=== PATIENT | male | born 1955 | race Caucasian/White ===

== ENCOUNTER 2018-11-18 15:55 | Emergency (ER) | payer OTHER, SELFPAY ==
--- NOTE | 2018-11-18 16:27 | NUR.NOTE ---
pt [place] his eat [place] in [place] was convinced that the stick was still inside his ear left . RN looked in the ear and found ear to be free of debree however moderate bleeding in ear
[2018-11-18 16:28] VITALS: BP 134/70; PULSE 65; RESP 17; TEMP 36; O2SAT 100
--- NOTE | 2018-11-18 22:35 | ED.GENADUL_ITS ---
Discharge Plan Disposition Patient Disposition: HOME Condition: Good Discharge Details Chief Complaint: EarProblem Clinical Impression: Perforation of tympanic membrane Primary Care Provider: Melvin Ludwig ED Provider: Tyree Drummond Home Meds and New Rx's Prescriptions: No Action multivitamin [Once Daily] 1 EACH tablet 1 ea PO DAILY RF: 0 aspirin [Aspirin Low-Strength] 81 MG tablet,chewable 81 mg PO 4xWeek RF: 0 fish oil-fat acid comb.[id number] [[place] 3-6-9] 1,200 MG capsule 2 cap PO DAILY RF: 0 calcium carbonate [Calcium 500] 500 MG tablet 1,000 mg PO DAILY RF: 0 cholecalciferol (vitamin D3) [Vitamin D3] 1,000 UNIT capsule 1,000 unit PO DAILY RF: 0 gemfibrozil 600 MG tablet 600 mg PO BID Qty: 180 RF: 4 triamcinolone acetonide 15 GM cream Topical BID Qty: 30 RF: 3 simvastatin 40 MG tablet 0.5 tab PO HS Qty: 45 RF: 4 Discharge Instructions Instructions: Ruptured Eardrum (ED) Additional Instructions: Please take the antibiotic as directed. Please apply 2-3 drops to the left ear daily. Please follow-up with your primary care provider as soon as possible for reassessment. Please put in a referral with the ear nose throat doctor for further assessment. You will be called with an appointment time. If you notice any worsening drainage, fever, worsening pain, hearing changes, please return immediately for reassessment Referrals: Melvin Ludwig MD [Primary Care Provider] - Discharge Data Discharge Date/Time-TO BE ENTERED AT DEPARTURE: 11/18/18 17:25 Medical Decision Making This is a pleasant 63-year-old male who presents with left ear pain after a twig got stuck in it. Physical exam demonstrates a small perforation in the tympanic membrane, no evidence of active bleeding after blood was removed. Hearing is notably decreased in the left ear. With evidence of perforation, I feel that antibiotics are indicated especially since he was perforated with a foreign body. No evidence of retained foreign body I do feel that the patient be safely discharged home with close follow-up with his PCP. We will put in referral for ENT on an outpatient basis. We will start the patient on ofloxacin for treatment of this. We will give the first dose here I have extensively reviewed the treatment plan and discharge instructions with the patient and their family. I have addressed all patient concerns at this time. The patient and family was made aware of what symptoms to monitor for that would warrant a return to the emergency department. Discussed the plan with the patient and family, they demonstrate verbal understanding and agreement with our assessment and plan at this time. HPI General Date/Time Provider Initiated Documentation: 11/18/18 16:56 . HPI Narrative: This is a pleasant 63-year-old male who presents for evaluation of bleeding in his ear. The patient states that [place] a twig got stuck in his left ear, he heard a pop, noticed bleeding. He came in for further evaluation. He denies any other trauma or any other complaints. He does take daily aspirin but no other blood thinners. Hearing is notably decreased in the left ear. He denies any headache or head pain. No numbness tingling weakness. No other complaints or modifying factors at this time. He denies any IV illicit drug use, pertinent family history or recent surgical history. Related Data Home Medications Medication Instructions Recorded Confirmed aspirin [Aspirin Low-Strength] 81 mg PO 4xWeek tab-cap 03/01/13 06/01/14 fish oil-fat acid comb.8-[id number] 2 cap PO DAILY 03/01/13 06/01/14 [[place] 3-6-9 1,200 Mg Softgel] multivitamin [Once Daily] 1 ea PO DAILY 03/01/13 06/01/14 calcium carbonate [Calcium] 1,000 mg PO DAILY 04/08/17 cholecalciferol (vitamin D3) 1,000 unit PO DAILY 04/08/17 [Vitamin D3] gemfibrozil 600 mg PO BID #180 tab-cap 04/10/18 triamcinolone acetonide 0 TOPICAL BID #30 g 04/10/18 simvastatin 0.5 tab PO HS #45 tab-cap 05/13/18 Previous Rx's Medication Instructions Recorded gemfibrozil 600 mg PO BID #180 tab-cap 04/10/18 simvastatin 0.5 tab PO HS #45 tab-cap 05/13/18 Allergies Allergy/AdvReac Type Severity Reaction Status Date / Time iodine AdvReac Intermediate Vomiting Unverified 04/10/18 15:51 shellfish derived AdvReac Intermediate Vomiting Unverified 04/10/18 15:51 General Stated Complaint: EarProblem CHUY: 5 Review of Systems Review of Systems All systems reviewed & are unremarkable except as noted in HPI and below PFSH Surgical History Vasectomy Family History Mother Diabetes Neoplasm Father Heart disease Sister Diabetes CD (Crohn's disease) Sister No problems noted. Sister No problems noted. Sister No problems noted. Sister No problems noted. Sister No problems noted. Brother No problems noted. Brother No problems noted. Brother No problems noted. Son Essential hypertension Daughter No problems noted. Exam Narrative Exam Narrative: 1.Const: Well-nourished, Well-developed, appearing stated age 2.Eyes: PERRL, no conjunctival injection, and symmetrical lids. 3.ENT: Atraumatic external nose and ears. Moist MM. Neck: Symmetric, trachea midline, No thyromegaly. Evaluation of the left internal ear demonstrates mild amount of blood in the ear. After suctioning, the blood was removed and there is evidence of a small perforation at the 2 o'clock position for the tympanic membrane. No evidence of foreign body or stick. All blood was removed from inside the ear. No other signs of trauma or abnormality. No active bleeding 4.CVS: +S1/S2, No murmurs or gallops. Peripheral pulses 2+ and equal in all extremities. Brisk capillary refill in all extremities. 5.RESP: Unlabored respiratory effort. Clear to auscultation bilaterally. No wheezes rales or rhonchi 6.GI: Soft, Nontender/Nondistended, No hepatosplenomegaly. No guarding or rebound. 7.MSK: Normocephalic/Atraumatic, Extremities w/o deformity or ttp No cyanosis or clubbing, Normal movement of all extremities 8.Skin: Warm, Dry. No rashes or lesions. 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 Sensation grossly intact, no focal neurologic deficits. 10.Psych: (AAO) x3. Appropriate mood and affect Course Vital Signs Temperature 36 C L 11/18/18 16:28 Pulse 65 11/18/18 16:28 Respiratory Rate 17 11/18/18 16:28 Blood Pressure 134/70 11/18/18 16:28 Pulse Oximetry 100 11/18/18 16:28 Temperature 36 C L 11/18/18 16:28 Temperature Source Skin 11/18/18 16:28 Pulse 65 11/18/18 16:28 Respiratory Rate 17 11/18/18 16:28 Blood Pressure 134/70 11/18/18 16:28 Blood Pressure Position Sitting 11/18/18 16:28 Pulse Oximetry 100 11/18/18 16:28 Oxygen Delivery Method Room Air 11/18/18 16:28 Oxygen Flow Rate 0 11/18/18 16:28 Pain Level 6 11/18/18 16:28
--- NOTE | 2018-11-19 08:50 | PDOC.ERCMPRO ---
Care Management Progress Note 11/19-Dr. Drummond requested assistance with an ENT f/u in 1-2 weeks for ruptured TM. Referral faxed to ENT this am.
== END 2018-11-18 17:25 | disposition home or self-care (01) ==
PROVIDERS: Emergency Provider Student in an Organized Health Care Education/Training Program; PCP Family Medicine
DX: H72.92 Unspecified perforation of tympanic membrane, left ear (principal); W22.8XXA Striking against or struck by other objects, initial encounter
CPT/HCPCS: 99283

== ENCOUNTER 2019-04-24 00:18 | Outpatient (CLI) | payer OTHER, SELFPAY ==
[2019-04-24 09:17] LABS: HCT 42.1 % (40.0-50.0); HGB 14.2 g/dL (13.5-17.5); Mean Corp. HGB Concentration 33.7 g/dL (32.0-36.0); Mean Corpuscular Hemoglobin 30.8 pg (27.0-33.0); Mean Corpuscular Volume 91.3 fL (80-95); Mean Platelet Volume 9.2 fL (8.0-11.0); Platelet Count 284 x1000/uL (130-400); RBC 4.61 m/cumm (4.50-6.00); RBC Distribution Width 12.8 % (11.8-14.1); White Blood Cell Count 4.95 k/cumm (4.4-10.8)
[2019-04-24 10:22] LABS: Calculated LDL 111 mg/dL; Cholesterol 190 mg/dL (50-200); HDL Cholesterol 64 mg/dL (40-60); Triglyceride 79 mg/dL (30-150)
[2019-04-26 11:53] LABS: Lyme Ab w Rflx to Lyme Confirm Negative
== END 2019-04-24 00:38 ==
PROVIDERS: PCP Family Medicine; Visit Provider Family Medicine
DX: W57.XXXA Bitten or stung by nonvenomous insect and other nonvenomous arthropods, initial encounter (principal); Z00.00 Encounter for general adult medical examination without abnormal findings; Z13.220 Encounter for screening for lipoid disorders; T14.8XXA Other injury of unspecified body region, initial encounter
CPT/HCPCS: 36415; 80061; 83721; 85027; 86618

== ENCOUNTER 2020-05-04 01:33 | Outpatient (CLI) | payer OTHER, SELFPAY ==
[2020-05-04 08:57] LABS: Anion Gap 9.8 mmol/L (3-11); BUN 18 mg/dL (7-18); CO2 26.2 mmol/L (21.0-32.0); Calcium 9.1 mg/dL (8.5-10.1); Calculated LDL 134 mg/dL (<100); Chloride 111 mmol/L (98-107); Cholesterol 218 mg/dL (<200); Glucose 100 mg/dL (74-106); HDL Cholesterol 73 mg/dL (40-60); Potassium 4.8 mmol/L (3.5-5.1); Sodium 147 mmol/L (136-145); Triglyceride 59 mg/dL (<150)
[2020-05-05 10:43] LABS: Lyme Ab w Rflx to Lyme Confirm Negative (Negative)
== END 2020-05-04 01:53 ==
PROVIDERS: PCP Nurse Practitioner; Visit Provider Family Medicine
DX: I10 Essential (primary) hypertension (principal); W57.XXXA Bitten or stung by nonvenomous insect and other nonvenomous arthropods, initial encounter
CPT/HCPCS: 36415; 80048; 80061; 86618

== ENCOUNTER 2021-01-16 04:05 | Outpatient (CLI) | payer MEDICARE, SELFPAY ==
[2021-01-16 08:43] LABS: CREATININE 1.1 mg/dL (0.70-1.30); Calculated LDL 130 mg/dL (<100); Cholesterol 212 mg/dL (<200); HDL Cholesterol 61 mg/dL (40-60); Potassium 4.3 mmol/L (3.5-5.1); Triglyceride 107 mg/dL (<150)
[2021-01-17 09:39] LABS: Lyme Ab w Rflx to Lyme Confirm Negative (Negative)
[2021-01-18 16:53] LABS: Anaplasma phagocytophilum Negative (Negative); B. miyamotoi PCR Negative (Negative); Babesia divergens/MO-1 Negative (Negative); Babesia duncani Negative (Negative); Babesia microti Negative (Negative); Ehrlichia chaffeensis Negative (Negative); Ehrlichia ewingii/canis Negative (Negative); Ehrlichia muris eauclairensis Negative (Negative)
== END 2021-01-16 04:06 | disposition home or self-care (01) ==
LOC: LBO 04:05
PROVIDERS: PCP Nurse Practitioner; Visit Provider Nurse Practitioner
DX: I10 Essential (primary) hypertension (principal); E78.5 Hyperlipidemia, unspecified; W57.XXXA Bitten or stung by nonvenomous insect and other nonvenomous arthropods, initial encounter; T14.8XXA Other injury of unspecified body region, initial encounter
CPT/HCPCS: 36415; 80061; 87798; 82565; 84132; 86618

== ENCOUNTER 2021-05-21 13:22 | Outpatient (REF) | payer MEDICARE, SELFPAY ==
[2021-05-21 20:37] LABS: ALT 22 U/L (16-63); AST 18 U/L (15-37); Albumin 4.3 g/dL (3.4-5.0); Alkaline Phosphatase 42 U/L (46-116); Anion Gap 12.4 mmol/L (3-11); BUN 20 mg/dL (7-18); Bilirubin, Total 0.8 mg/dL (0.2-1.0); CO2 22.6 mmol/L (21.0-32.0); CREATININE 0.9 mg/dL (0.70-1.30); Calcium 9.9 mg/dL (8.5-10.1); Calculated LDL 149 mg/dL (<100); Chloride 107 mmol/L (98-107); Cholesterol 238 mg/dL (<200); Glucose 83 mg/dL (74-106); HDL Cholesterol 72 mg/dL (40-60); Potassium 4.2 mmol/L (3.5-5.1); Sodium 142 mmol/L (136-145); Total Protein 7.7 g/dL (6.4-8.2); Triglyceride 89 mg/dL (<150)
[2021-05-23 10:15] LABS: Lyme Ab w Rflx to Lyme Confirm Negative (Negative)
[2021-05-24 17:47] LABS: Anaplasma phagocytophilum Negative (Negative); B. miyamotoi PCR Negative (Negative); Babesia divergens/MO-1 Negative (Negative); Babesia duncani Negative (Negative); Babesia microti Negative (Negative); Ehrlichia chaffeensis Negative (Negative); Ehrlichia ewingii/canis Negative (Negative); Ehrlichia muris eauclairensis Negative (Negative)
== END 2021-05-21 13:23 | disposition home or self-care (01) ==
LOC: NCHCN 13:22
PROVIDERS: Visit Provider Physician Assistant Medical
DX: E78.5 Hyperlipidemia, unspecified (principal); I10 Essential (primary) hypertension
CPT/HCPCS: 80053; 80061; 87798; 86618

== ENCOUNTER 2021-09-03 16:16 | Outpatient (REF) | payer MEDICARE, SELFPAY ==
[2021-09-03 17:13] LABS: ALT 25 U/L (16-63); AST 17 U/L (15-37); Albumin 4.2 g/dL (3.4-5.0); Alkaline Phosphatase 54 U/L (46-116); Anion Gap 12.5 mmol/L (3-11); BUN 20 mg/dL (7-18); Bilirubin, Total 0.4 mg/dL (0.2-1.0); CO2 23.5 mmol/L (21.0-32.0); Calcium 9.4 mg/dL (8.5-10.1); Calculated LDL 125 mg/dL (<100); Chloride 108 mmol/L (98-107); Cholesterol 203 mg/dL (<200); Glucose 95 mg/dL (74-106); HDL Cholesterol 58 mg/dL (40-60); Potassium 4.4 mmol/L (3.5-5.1); Sodium 144 mmol/L (136-145); Total Protein 7.8 g/dL (6.4-8.2); Triglyceride 102 mg/dL (<150)
[2021-09-05 14:37] LABS: COVID-19 RT-PCR UVMMC Result Positive (Negative)
== END 2021-09-03 16:17 | disposition home or self-care (01) ==
LOC: NCHCN 16:16
PROVIDERS: Visit Provider Physician Assistant Medical
DX: I10 Essential (primary) hypertension (principal); E78.5 Hyperlipidemia, unspecified; Z20.822 Contact with and (suspected) exposure to COVID-19; R05.8 Other specified cough
CPT/HCPCS: 80053; 80061; U0003

== ENCOUNTER 2022-09-06 15:44 | Outpatient (REF) | payer MEDICARE, SELFPAY ==
[2022-09-06 18:42] LABS: HGB 13.8 g/dL (13.5-17.5); MCH 30.7 pg (27.0-33.0); MCHC 32.9 % (32.0-36.0); MCV 94 fL (80-95); Platelet Count 316 10^3/uL (130-400); RBC 4.49 10^6/uL (4.36-5.78); RDW 12.1 % (11.8-14.1); RDW-SD 41.8 fL; WBC 5.32 10^3/uL (4.4-10.8)
[2022-09-06 18:58] LABS: ALT 22 U/L (16-63); AST 20 U/L (15-37); Alkaline Phosphatase 46 U/L (46-116); Anion Gap 9.1 mmol/L (3-11); BUN 17 mg/dL (7-18); Bilirubin, Total 0.4 mg/dL (0.2-1.0); CO2 24.9 mmol/L (21.0-32.0); Calcium 9.6 mg/dL (8.5-10.1); Calculated LDL 112 mg/dL (<100); Chloride 103 mmol/L (98-107); Cholesterol 198 mg/dL (<200); Estimated GFR 81.98 (mL/min/1.73m2); Glucose 93 mg/dL (74-106); HDL Cholesterol 75 mg/dL (40-60); Potassium 4.4 mmol/L (3.5-5.1); Sodium 137 mmol/L (136-145); Triglyceride 56 mg/dL (<150)
== END 2022-09-06 15:45 | disposition home or self-care (01) ==
LOC: NCHCN 15:44
PROVIDERS: Visit Provider Physician Assistant Medical
DX: E78.5 Hyperlipidemia, unspecified (principal); I10 Essential (primary) hypertension
CPT/HCPCS: 80053; 80061; 85027

== ENCOUNTER 2023-09-09 15:15 | Outpatient (REF) | payer MEDICARE, SELFPAY ==
[2023-09-09 15:22] LABS: ALT 24 U/L (16-63); AST 19 U/L (15-37); Albumin 4.2 g/dL (3.4-5.0); Alkaline Phosphatase 47 U/L (46-116); Anion Gap 8.1 mmol/L (3-11); BUN 21 mg/dL (7-18); Bilirubin, Total 0.8 mg/dL (0.2-1.0); CO2 26.9 mmol/L (21.0-32.0); Calcium 9.6 mg/dL (8.5-10.1); Calculated LDL 147 mg/dL (<100); Chloride 104 mmol/L (98-107); Cholesterol 240 mg/dL (<200); Estimated GFR 81.47 (mL/min/1.73m2); Glucose 96 mg/dL (74-106); HDL Cholesterol 73 mg/dL (40-60); Potassium 4.1 mmol/L (3.5-5.1); Sodium 139 mmol/L (136-145); Triglyceride 104 mg/dL (<150)
== END 2023-09-09 15:16 | disposition home or self-care (01) ==
LOC: NCHCN 15:15
PROVIDERS: PCP Physician Assistant Medical; Visit Provider Physician Assistant Medical
DX: I10 Essential (primary) hypertension (principal); E78.5 Hyperlipidemia, unspecified
CPT/HCPCS: 80053; 80061

== ENCOUNTER 2023-12-18 08:51 | Outpatient (REF) | payer MEDICARE, SELFPAY ==
[2023-12-18 16:00] LABS: Calculated LDL 112 mg/dL (<100); Cholesterol 190 mg/dL (<200); HDL Cholesterol 63 mg/dL (40-60); Triglyceride 78 mg/dL (<150)
== END 2023-12-18 08:52 | disposition home or self-care (01) ==
LOC: NCHCN 08:51
PROVIDERS: PCP Physician Assistant Medical; Referring Provider Physician Assistant Medical; Visit Provider Physician Assistant Medical
DX: E78.5 Hyperlipidemia, unspecified (principal); I10 Essential (primary) hypertension
CPT/HCPCS: 80061

== ENCOUNTER 2024-03-09 10:00 | Outpatient (REF) | payer MEDICARE, SELFPAY ==
[2024-03-09 16:08] LABS: ALT 25 U/L (16-63); AST 18 U/L (15-37); Albumin 4.3 g/dL (3.4-5.0); Alkaline Phosphatase 49 U/L (46-116); Anion Gap 9.4 mmol/L (3-11); BUN 16 mg/dL (7-18); Bilirubin, Total 0.6 mg/dL (0.2-1.0); CO2 25.6 mmol/L (21.0-32.0); CREATININE 1.1 mg/dL (0.70-1.30); Calcium 9.2 mg/dL (8.5-10.1); Chloride 104 mmol/L (98-107); Creatine Kinase 134 U/L (39-308); Estimated GFR 72.67 (mL/min/1.73m2); Glucose 96 mg/dL (74-106); Magnesium 2.2 mg/dL (1.8-2.4); Potassium 4.5 mmol/L (3.5-5.1); Sodium 139 mmol/L (136-145); Total Protein 7.8 g/dL (6.4-8.2)
[2024-03-12 00:35] LABS: Anaplasma phagocytophilum Negative (Negative); B. miyamotoi PCR Negative (Negative); Babesia divergens/MO-1 Negative (Negative); Babesia duncani Negative (Negative); Babesia microti Negative (Negative); Ehrlichia chaffeensis Negative (Negative); Ehrlichia ewingii/canis Negative (Negative); Ehrlichia muris eauclairensis Negative (Negative)
== END 2024-03-09 10:01 | disposition home or self-care (01) ==
LOC: NCHCN 10:00
PROVIDERS: PCP Physician Assistant Medical; Visit Provider Physician Assistant Medical
DX: I10 Essential (primary) hypertension (principal); M79.18 Myalgia, other site
CPT/HCPCS: 80053; 82550; 87798; 83735

== ENCOUNTER 2024-07-13 15:02 | Outpatient (REF) | payer MEDICARE, SELFPAY ==
[2024-07-13 16:51] LABS: ALT 27 U/L (16-63); AST 19 U/L (15-37); Alkaline Phosphatase 53 U/L (46-116); Anion Gap 9.7 mmol/L (3-11); BUN 24 mg/dL (7-18); Bilirubin, Total 0.81 mg/dL (0.2-1.0); CO2 25.3 mmol/L (21.0-32.0); CREATININE 1.1 mg/dL (0.70-1.30); Calcium 9.4 mg/dL (8.5-10.1); Calculated LDL 98 mg/dL (<100); Chloride 105 mmol/L (98-107); Cholesterol 190 mg/dL (<200); Estimated GFR 72.22 (mL/min/1.73m2); Glucose 98 mg/dL (74-106); HDL Cholesterol 78 mg/dL (40-60); Potassium 4.4 mmol/L (3.5-5.1); Sodium 140 mmol/L (136-145); Total Protein 7.8 g/dL (6.4-8.2); Triglyceride 70 mg/dL (<150)
== END 2024-07-13 15:03 | disposition home or self-care (01) ==
LOC: NCHCN 15:02
PROVIDERS: PCP Physician Assistant Medical; Visit Provider Physician Assistant Medical
DX: E78.5 Hyperlipidemia, unspecified (principal)
CPT/HCPCS: 80053; 80061

== ENCOUNTER 2025-01-05 01:03 | Outpatient (CLI) | payer MEDICARE, SELFPAY ==
--- NOTE | 2025-01-05 | DI.RAD_ITS ---
Exam(s) XR HIP LT COMPLETE AP PELVIS EXAM: XR HIP LT COMPLETE AP PELVIS CLINICAL HISTORY: LT HIP PAIN, M25.552. TECHNIQUE: 2D digital imaging was performed. Two views. COMPARISON: No exams were available for comparison FINDINGS: BONES: There are old bilateral superior pubic ramus fractures no acute fracture is present. No bony d estructive lesion is seen. JOINTS: Hip joint spaces are maintained. There is mild acetabular spurring bilaterally. The SI join ts and pubic symphysis are intact. SOFT TISSUE: Vasectomy clips. IMPRESSION: Mild degenerative changes DATA REPOSITORY: RADIATION DOSE DELIVERED:
--- NOTE | 2025-01-05 | DI.RAD_ITS ---
Exam(s) XR LUMBAR SPINE COMPLETE EXAM: XR LUMBAR SPINE COMPLETE CLINICAL HISTORY: LOW BACK PAIN,M54.50. TECHNIQUE: 2D digital imaging was performed. Five views. COMPARISON: No exams were available for comparison FINDINGS: BONES: No fracture or destructive lesion. Vertebral body heights are maintained. Small endplate os teophytes at L2-3. Facet degenerative changes are seen from L3-4 through L5-S1. DISKS: Intervertebral disc spaces are maintained. ALIGNMENT: There is slight spondylolisthesis at L4-5 secondary to facet degenerative changes. SOFT TISSUE: Normal. IMPRESSION: Degenerative changes of the lower lumbar spine. DATA REPOSITORY: RADIATION DOSE DELIVERED:
== END 2025-01-05 01:23 ==
LOC: DI 01:03
PROVIDERS: PCP Physician Assistant Medical; Visit Provider Physician Assistant Medical
DX: M25.552 Pain in left hip (principal); M54.50 Low back pain, unspecified
CPT/HCPCS: 72110; 73502

== ENCOUNTER 2025-06-14 10:55 | Outpatient (REF) | payer MEDICARE, SELFPAY ==
[2025-06-14 17:02] LABS: ALT 31 U/L (16-63); AST 21 U/L (15-37); Albumin 4.2 g/dL (3.4-5.0); Alkaline Phosphatase 50 U/L (46-116); Anion Gap 7.7 mmol/L (3-11); BUN 16 mg/dL (7-18); Bilirubin, Total 0.8 mg/dL (0.2-1.0); CO2 28.3 mmol/L (21.0-32.0); Calcium 9.3 mg/dL (8.5-10.1); Calculated LDL 97 mg/dL (<100); Chloride 104 mmol/L (98-107); Cholesterol 195 mg/dL (<200); Estimated GFR 80.97 (mL/min/1.73m2); Glucose 101 mg/dL (74-106); HDL Cholesterol 80 mg/dL (>or=40); Potassium 4.5 mmol/L (3.5-5.1); Sodium 140 mmol/L (136-145); Total Protein 7.7 g/dL (6.4-8.2); Triglyceride 91 mg/dL (<150)
[2025-06-14 17:11] LABS: Hemoglobin A1C 5.4 % (<5.7)
[2025-06-15 11:35] LABS: Lyme Ab w Rflx to Lyme Confirm Negative (Negative)
== END 2025-06-14 10:56 | disposition home or self-care (01) ==
LOC: NCHCN 10:55
PROVIDERS: PCP Physician Assistant Medical; Visit Provider Physician Assistant Medical
DX: I10 Essential (primary) hypertension (principal); Z13.1 Encounter for screening for diabetes mellitus; E78.2 Mixed hyperlipidemia; W57.XXXA Bitten or stung by nonvenomous insect and other nonvenomous arthropods, initial encounter
CPT/HCPCS: 80053; 80061; 83036; 86618

== ENCOUNTER 2025-08-04 20:57 | Emergency (ER) | payer MEDICARE, SELFPAY ==
[2025-08-04] VITALS (7 sets, daily range): BP systolic 150–184; BP diastolic 97–129; PULSE 74–83; RESP 17–27; TEMP 37.1; O2SAT 92–96
[2025-08-04] MEDS: Tranexamic Acid 1,000 MG/10 ML VIAL 1000 MG IVP (21:19)
--- NOTE | 2025-08-04 21:24 | ED.GENADUL_ITS ---
Discharge Plan Disposition Patient Disposition: Home Condition: Stable Discharge Details Clinical Impression: Epistaxis Primary Care Provider: Robert Cooper ED Provider: Tyree Trujillo Home Meds and New Rx's Prescriptions: Continued mv-mn no.42-keulz-fiyti-lutein 1-100-1 mg tablet 1 tab PO DAILY gemfibrozil 600 mg tablet 600 mg PO BID Qty: 180 4RF simvastatin 40 mg tablet 20 mg PO HS Qty: 45 4RF losartan 50 mg tablet 50 mg PO DAILY [place] 3-6-9 Triple [place] 1,200 MG capsule 2 cap PO DAILY aspirin [Aspirin Low-Strength] 81 mg tablet,chewable 81 mg PO 4xWeek Discharge Instructions Instructions: Nosebleeds ED Additional Instructions: You were seen in the emergency department for your severe nosebleed. We performed bilateral packing with Rhino Rocket soaked in hemostatic agent called TXA, you have a deviated septum as it is documented in your history I think that is why the right nares Rhino Rocket did not go all the way and as is demonstrated on CT, regardless of this less than ideal placement it appears effective and we do not want to move it at all. Please take care not to disturb your nose, these need to stay in place for 72 hours, please return to the ER Friday evening for removal, also try to make an appointment with Dr. Palacios as he may need to carefully examine your posterior nasopharynx to see if there is any interventions we can make to prevent severe nosebleeds in the future. Please return to the ER for reevaluation for any resumption of bleeding. Referrals: Jose Francisco Palacios MD [ [facility] STAFF PHYSICIAN, ENT Surgical] Robert Cooper PA [Primary Care Provider, Medicine] Discharge Data Discharge Date/Time-TO BE ENTERED AT DEPARTURE: 08/04/25 23:00 Discharge Physician: Mikal Philippe HPI General Date/Time Provider Initiated Documentation: 08/04/25 21:01 . HPI Narrative: 70 year-old male presents to ED today by POV/ambulating with his with a chief complaint of severe epistaxis from R nare, now coming out of his R lacrimal duct with onset around 2000 tonight. Quality described as not painful- had what felt like a booger he couldn't get out two weeks ago, no radiation to cough, sneeze, visual changes, headache. Severity is described as severe for bleeding. Palliating factors include clamping without relief. Provoking factors include nothing specific. Events leading up to the incident/Associated Symptoms: [place] and was in excessively arid environments. Patient not anticoagulated. Related Data Home Medications ?Medication ?Instructions ?Recorded ?Confirmed fish oil-fat acid comb8-herb 2 cap PO DAILY 03/01/13 1 [id number] 1,200 mg (400 [id number]) cap ([place] 3-6-9 Triple [place]) aspirin 81 mg chewable tablet 81 mg PO 4xWeek 04/20/19 08/04/25 (Aspirin Low-Strength) gemfibrozil 600 mg tablet 600 mg PO BID #180 tab-caps 04/21/20 08/04/25 multivit-min 67-folic acid 1 1 tab PO DAILY 04/21/20 1 mg-alpha lipoic 100 mg-lutein 1 mg tablet simvastatin 40 mg tablet 20 mg (1/2 x 40 mg) PO HS #4 5 04/21/20 08/04/25 tab-caps losartan 50 mg tablet 50 mg PO DAILY 06/27/2307/14 Previous Rx's ?Medication ?Instructions ?Recorded gemfibrozil 600 mg tablet 600 mg PO BID #180 tab-caps 04/21/20 simvastatin 40 mg tablet 20 mg (1/2 x 40 mg) PO HS #4 5 04/21/20 tab-caps Allergies Allergy/AdvReac Type Severity Reaction Status Date / Time atorvastatin Allergy Intermediate Verified 06/27/23 14:47 iodine AdvReac Intermediate Vomiting Unverified 12/18/21 13:05 shellfish derived AdvReac Intermediate Vomiting Unverified 12/18/21 13:05 General Stated Complaint: Epistaxis CHUY: 4 Review of Systems All systems reviewed & are unremarkable except as noted in HPI and below Exam Narrative Exam Narrative: GENERAL APPEARANCE: Well-nourished, non-toxic, awake and alert, atraumatic, moderate acute distress. SKIN: Warm, pink, dry, intact, without rashes/lesions/ulcerations. HEAD: Normocephalic, atraumatic, normal hair distribution for gender/age. EYES: Normal conjunctiva, no exudates on lids/lashes. ENT: Nares patent, no circumoral cyanosis, no facial swelling, profuse bleeding from right nare with some overflow bleeding in the left nare, steady amount of blood coming from the nasolacrimal area of the right eye, blood seen in the posterior oropharynx, all blood stopped after packing NECK: Supple, trachea midline, painless cervical ROM. LUNGS/CHEST: Non-labored respirations, normal A/P diameter, symmetrical expansion, no chest wall deformity HEART (CV/PV): Regular rate, R radial pulse 2+, no peripheral edema, no JVD. ABDOMEN: Soft, non-distended, no guarding. MSK: Normal ROM, no swelling/deformity to bilateral UEs or LEs, moving all extremities without weakness, no cyanosis, spine midline without tenderness, normal curvature. NEURO: Mental Status AAOx4 - alert to person, place, time, events No facial droop, no forehead involvement. Motor: No focal weakness - strength 5/5 in bilateral UEs and LEs, proximal and distal, symmetric. Sensory: sensation intact to light touch globally. Gait normal: patient ambulated without ataxia into ED room. PSYCH: euthymic, cooperative, pleasant, appropriate speech Course Vital Signs Vital signs: Vital Signs Temperature 37.1 C 08/04/25 21:02 Pulse 78 08/04/25 21:02 Respiratory Rate 20 08/04/25 21:02 Blood Pressure 184/110 H 08/04/25 21:02 Pulse Oximetry 92 08/04/25 21:02 Temperature 37.1 C 08/04/25 21:02 Pulse 78 08/04/25 21:02 Respiratory Rate 20 08/04/25 21:02 Blood Pressure 184/110 H 08/04/25 21:02 Blood Pressure Position Sitting 08/04/25 21:02 Pulse Oximetry 92 08/04/25 21:02 Oxygen Delivery Method Room Air 08/04/25 21:02 Oxygen Flow Rate 0 08/04/25 21:02 Procedure Epistaxis Control Provider that performed the procedure: Tyree Trujillo Patient Consented: Verbally Time Out Performed: No Nostril: bilateral Nose prepped with: TXA Direct Inspection: unable to visualize Clots Removed by: blowing nose Cautery Used: none Device Inserted: Rapid rhino/4.5cm single lumen and Rapid rhino 7.5cm dual lumen Procedure Description/Note: Patient presented with excessive epistaxis mainly from the right nare also leaking out of his right lacrimal duct area. I immediately inserted a dual- lumen Rhino Rocket in the right nare followed by 4.65 cm single-lumen left nare with complete relief of bleeding, plan to leave these in place for 5 days. Medical Decision Making This dictation utilizes [id number] dictation software and may contain unedited grammatical errors. 70 year-old male presents to ED today by POV/ambulating with his with a chief complaint of severe epistaxis from R nare, now coming out of his R lacrimal duct with onset around 2000 tonight. Quality described as not painful- had what felt like a booger he couldn't get out two weeks ago, no radiation to cough, sneeze, visual changes, headache. Severity is described as severe for bleeding. Palliating factors include clamping without relief. Provoking factors include nothing specific. Events leading up to the incident/Associated Symptoms: Patient did recently travel out west and was in excessively arid environments. Patients' medical history: Smoking history 30 years ago, hypertension, deviated nasal septum, hyperlipidemia, allergic rhinitis. Family and social history: recent travel as above, otherwise noncontributory. Pertinent exam findings / vital signs include steady stream of maroon blood from bilateral nares and down posterior oropharynx, blood coming from R lower eyelid/medial canthus- hypertensive. Differential / pathologies of concern include epistaxis, mass, polyp. Diagnostic studies of: -CBC, CMP, Type and Screen, CTA Brain & Neck. - CBC shows HgB 13.2 - CMP unremarkable - CTA without mass or major vessel involvement Interventions of: -Placed dual lumen 7.5 rhinorocket soaked in tXa in R nare, and 4.5 soaked in tXa in L nare - no blood seen streaking down posterior oropharynx, blood leaking from R eye stopped. ED Course/Assessment/Plan: 70-year-old male not on anticoagulants presents with severe nosebleed from right nare but is overflowing out of the left nare less so as well as coming profusely from his right eye lacrimal area, he was immediately packed with a right nare dual-lumen Rhino Rocket and 4.5 Rhino Rocket in the left nare with resolution of bleeding, there is no blood streaking down the posterior oropharynx, his labs show a hemoglobin of 13.2 he was monitored for about an hour with complete cessation of bleeding, CTA was performed to check for any vascular involvement versus mass and none is seen, counseled the patient on return after 72 hours for removal and possible follow-up with ENT on an outpatient basis, patient and patient's verbalized understanding the plan they will return for any resumption of bleeding. Findings not consistent with mass, polyp, vascular involvement of bleed. Disposition of Epistaxis. Patient verbalized understanding of the plan and return to ED criteria and salina velasquez in shared decision making. Medical Records Medical records reviewed: Yes I reviewed the patient's medical records. Imaging Data Radiologic Study: Attestation: I personally reviewed and interpreted this imaging study as follows: Imaging: CT Scan Radiologist's impression: Exam: CTA Head Without And With Contrast, Arteriography Exam date and time: 08/04/2025 9:46 PM Age: 70 years old Clinical indication: Other: Extreme epistaxis, blood from eyes TECHNIQUE: Imaging protocol: Computed tomographic angiography of the head without and with contrast. Exam focused on the arteries. 3D rendering (Not supervised by radiologist): MIP and/or 3D reconstructed images were created by the technologist. Radiation optimization: All CT scans at this facility use at least one of these dose optimization techniques: automated exposure control; mA and/or kV adjustment per patient size (includes targeted exams where dose is matched to clinical indication); or iterative reconstruction. Contrast material: [id number]; Contrast volume: 70 ml; Contrast route: INTRAVENOUS (IV); COMPARISON: No relevant prior studies available. FINDINGS: ANTERIOR CIRCULATION: Right internal carotid artery: Intracranial segment is patent with no significant stenosis or occlusion. No aneurysm. Right middle cerebral artery: No occlusion or significant stenosis. No aneurysm. Right anterior cerebral artery: No occlusion or significant stenosis. No aneurysm. Left internal carotid artery: Intracranial segment is patent with no significant stenosis. No aneurysm. Left middle cerebral artery: No occlusion or significant stenosis. No aneurysm. Left anterior cerebral artery: No occlusion or significant stenosis. No aneurysm. POSTERIOR CIRCULATION: Right vertebral artery: No occlusion or significant stenosis. No aneurysm. Left vertebral artery: No occlusion or significant stenosis. No aneurysm. Basilar artery: No occlusion or significant stenosis. No aneurysm. Right posterior cerebral artery: No occlusion or significant stenosis. No aneurysm. Left posterior cerebral artery: No occlusion or significant stenosis. No aneurysm. HEAD: Brain: There is mild diffuse cerebral atrophy present, consistent with this patient's age. There is patchy low attenuation in the white matter of both cerebral hemispheres which is a nonspecific finding but most likely secondary to moderate chronic microvascular ischemic disease. No evidence of acute ischemia. No hemorrhage. Cerebral ventricles: Normal. No ventriculomegaly. Bones: Unremarkable. No acute fracture. Orbital cavities: The globes are intact. The appearance of the globes is suggestive of prior cataract surgery. Paranasal sinuses: There is mucosal thickening throughout the paranasal sinuses. There is a small amount of acute blood in the left maxillary and right sphenoid sinuses. There are frothy secretions in the maxillary and sphenoid sinuses. Mastoid air cells: Visualized mastoids are normal. No mastoid effusion. Nasal cavity: There are right and left-sided nasal catheters in place. There is heterogeneous material mixed with air throughout the bilateral nasal cavities, nasopharynx, and oropharynx. There is also air within the soft tissues of the nasal cavities and nasopharynx. No discrete mass is identified. There is no contrast extravasation to suggest site of active bleeding. Soft tissues: There is mild soft tissue swelling and small amount of subcutaneous emphysema of the nose. No focal fluid collection. IMPRESSION: 1. Right and left-sided nasal catheters in place. Heterogeneous material mixed with air throughout the bilateral nasal cavities, nasopharynx, and oropharynx. There is also air within the soft tissues of the nasal cavities and nasopharynx. No discrete mass is identified. No contrast extravasation to suggest site of active bleeding. 2. Mild soft tissue swelling and small amount of subcutaneous emphysema of the nose. No focal fluid collection. 3. Mucosal thickening throughout the paranasal sinuses. Small amount of acute blood in the left maxillary and right sphenoid sinuses. PROCEDURE INFORMATION: Exam: CTA Neck With Contrast Exam date and time: 08/04/2025 9:46 PM Age: 70 years old Clinical indication: Other: Extreme epistaxis, blood from eyes TECHNIQUE: Imaging protocol: Computed tomographic angiography of the neck with contrast. Exam focused on the cervical segments of the vasculature. 3D rendering (Not supervised by radiologist): MIP and/or 3D reconstructed images were created by the technologist. Radiation optimization: All CT scans at this facility use at least one of these dose optimization techniques: automated exposure control; mA and/or kV adjustment per patient size (includes targeted exams where dose is matched to clinical indication); or iterative reconstruction. Contrast material: [id number]; Contrast volume: 70 ml; Contrast route: INTRAVENOUS (IV); COMPARISON: No relevant prior studies available. FINDINGS: Right common carotid artery: No stenosis. No dissection or occlusion. Right internal carotid artery: Mild calcified atherosclerosis of the proximal ICA. No stenosis of the extracranial segment. No dissection or occlusion. Right external carotid artery: No occlusion or stenosis of the origin. Left common carotid artery: Mild calcified atherosclerosis of the distal CCA. No stenosis. No dissection or occlusion. Left internal carotid artery: No stenosis of the extracranial segment. No dissection or occlusion. Left external carotid artery: No occlusion or stenosis of the origin. Right vertebral artery: The left vertebral artery is dominant. No stenosis. No dissection or occlusion. Left vertebral artery: No stenosis. No dissection or occlusion. Soft tissues: Normal. No significant soft tissue swelling. Bones/joints: No acute fracture. Remote appearing compression fractures with mild loss of height of T3 and moderate loss of height of T4. Multilevel chronic degenerative changes of the cervical spine. IMPRESSION: No stenosis or occlusion. REFERENCES: NASCET CRITERIA. The degree of stenosis in the cervical segment of the internal carotid artery is based on NASCET criteria. Normal is no stenosis. Mild is less than 50% stenosis. Moderate is 50-69% stenosis. Severe is 70% to 99% stenosis. Total occlusion is no detectable patent lumen. Dictated and Authenticated by: Moe Clifton MD. Lab Data Lab results reviewed: Yes I reviewed the patient's lab results. Labs: Laboratory Tests Range/Units 08/04/25 21:45 WBC (4.4-10.8) 10^3/uL 6.21 RBC (4.36-5.78) 10^6/uL 4.32 L Hgb (13.5-17.5) g/dL 13.2 L Hct (40.0-50.0) % 39.1 L MCV (80-95) fL 91 MCH (27.0-33.0) pg 30.6 MCHC (32.0-36.0) % 33.8 RDW (11.8-14.1) % 12.1 Plt Count (130-400) 10^3/uL 236 MPV (8.0-11.0) fL 9.7 Immature Gran % % 0.0 Neutrophils % % 52.4 Lymphocytes % % 34.5 Monocytes % % 7.4 Eosinophils % % 5.2 Basophils % % 0.5 Nucleated RBC % (0.0-0.3) % 0.0 Absolute Neutrophils (1.2-6.7) 10^3/uL 3.26 Absolute Lymphocytes (1.2-3.4) 10^3/uL 2.14 Absolute Monocytes (0.1-0.8) 10^3/uL 0.46 Absolute Eosinophils (0.0-0.7) 10^3/uL 0.32 Absolute Basophils (0.0-0.2) 10^3/uL 0.03 Sodium (136-145) mmol/L 140 Potassium (3.5-5.1) mmol/L 3.4 L Chloride (98-107) mmol/L 104 Carbon Dioxide (21.0-32.0) mmol/L 26.4 Anion Gap (3-11) mmol/L 9.6 BUN (7-18) mg/dL 25 H Creatinine (0.70-1.30) mg/dL 1.0 Est GFR (CKD-EPI 2020) (mL/min/1.73m2) 80.47 Glucose (74-106) mg/dL 107 H Calcium (8.5-10.1) mg/dL 8.5 Total Bilirubin (0.2-1.0) mg/dL 0.5 AST (15-37) U/L 18 ALT (16-63) U/L 29 Alkaline Phosphatase (46-116) U/L 53 Total Protein (6.4-8.2) g/dL 7.1 Albumin (3.4-5.0) g/dL 3.6 ABO/Rh A Negative Antibody Screen NEGATIVE PFSH All Active Problems (Updated 08/04/25 @ 22:28 by ULISSES Sheehan) Epistaxis (Acute) Hypertension (Chronic) Snoring (Acute) Fatigue (Chronic) Allergic rhinitis (Chronic) Perforation of left tympanic membrane (Acute) Deviated nasal septum (Chronic) Family history of coronary artery disease (Chronic 04/03/16) father Family history of diabetes mellitus (Chronic 04/03/16) mother History of tobacco use (Chronic) Hyperlipidemia (Chronic) Low testosterone (Chronic 03/13/15) Medical History (Updated 08/04/25 @ 22:28 by ULISSES Sheehan) COVID-19 Rash Hearing impairment Surgical History (System 12/18/21 @ 13:05 by Kristina Romo) Vasectomy Family History (System 12/18/21 @ 13:05 by Kristina Romo) Mother Diabetes Ovarian cancer Father Heart disease Sister , 61 Diabetes CD (Crohn's disease) Sister No problems noted. Sister No problems noted. Sister No problems noted. Sister No problems noted. Sister No problems noted. Brother No problems noted. Brother No problems noted. Brother No problems noted. Son Essential hypertension Daughter No problems noted. Maternal Grandfather No problems noted. Paternal Grandfather No problems noted. Maternal Grandmother No problems noted. Paternal Grandmother No problems noted. Other Family history of coronary artery disease Family history of diabetes mellitus Social History (System 12/18/21 @ 13:05 by Kristina Romo) Smoking/Tobacco Use Status: Former Tobacco Use Second Hand Exposure: Yes Smoking risk assessment performed?: Yes Alcohol Intake: current Alcohol Intake frequency: 0-2 drinks per day Alcohol type: beer and hard liquor Drug use: Never Substance use type: does not use Caregiver/Support person: No Household members: spouse Housing: house Communication Needs: None Do you need help understanding health information?: Rarely Pets and animals: Yes Pets and animals: horse(s) Sexually active: Yes Do you think of yourself as: straight/heterosexual What is your relationship status?: How often do you talk on the phone with friends or family?: three or more times per week How often do you get together with friends or relatives?: three or more times per week How often do you attend spiritism or christian services?: 1-3 times per year Do you belong to any clubs or organized social groups?: yes Panel score (0-1 are the most socially isolated patients): 3 What type of physical activity do you participate in: walking Duration: 30-45 minutes/day Frequency: daily Helen/Zoroastrianism: Pentecostal Special helen needs: No Seatbelt use: always Helmet use: Yes Helmet use: always Drive intox or ride w/intox airport driver: No
[2025-08-04] MEDS: Omnipaque 350 MG/ML 100 ML BTL IJ (21:48)
[2025-08-04 21:53] LABS: Abs Immature Grans 0.00 10^3/uL (0.0-0.06); HCT 39.1 % (40.0-50.0); HGB 13.2 g/dL (13.5-17.5); Immature Grans % 0.0 %; MCH 30.6 pg (27.0-33.0); MCHC 33.8 % (32.0-36.0); MCV 91 fL (80-95); MPV 9.7 fL (8.0-11.0); Platelet Count 236 10^3/uL (130-400); RBC 4.32 10^6/uL (4.36-5.78); RDW 12.1 % (11.8-14.1); RDW-SD 40.1 fL; WBC 6.21 10^3/uL (4.4-10.8)
[2025-08-04] MEDS: Normal Saline - Diluent 50 ML VIAL IJ (21:53)
[2025-08-04] MEDS: Normal Saline Flush 10 ML SYR IVP (21:53)
--- NOTE | 2025-08-04 22:03 | DI.CT_ITS ---
Exam(s) CT BRAIN NECK CTA EXAM: CT BRAIN NECK CTA CLINICAL HISTORY: extreme epistaxis, blood from eyes in addition to. TECHNIQUE: Imaging Protocol: Axial CT angiography was performed with multi- slice acquisition and multi-planar and MIP reconstructions. CONTRAST MATERIAL: Intravenous: Omnipaque 350 Contrast volume:100 ml COMPARISON: No exams were available for comparison FINDINGS: CT Head W/O and W contrast: Ventricles and Extra axial spaces: Normal in size and morphology for the patient's age. Hemorrhage: None. Cerebral parenchyma: No evidence of acute infarct or mass. Mild atrophy. Moderate white matter changes of small vessel disease. Midline shift: None. Brainstem/Cerebellum: No acute findings. Calvarium: Normal. Visualized Paranasal sinuses/Mastoids: Significant mucous retention in the left maxillary sinus. Mild mucous retention in the right mid cysts maxillary sinus. Opacification of the right sphenoid sinus. Few ethmoid sinuses are also opacified. Catheters are noted within both nasal cavities. There is air and debris within the nasal cavity. There is no evidence of contrast extravasation to suggest active bleeding. No mass is visible. Soft Tissues: Unremar soft tissue swelling around the nose. Enhancement: Normal. Venous sinuses are patent. CTA Brain W: Internal Carotid Arteries: Right: No aneurysm, occlusion or significant stenosis. Left: No aneurysm, occlusion or significant stenosis. Middle Cerebral Arteries: Right: No aneurysm, occlusion or significant stenosis. Left: No aneurysm, occlusion or significant stenosis. Anterior Cerebral Arteries: Right: No aneurysm, occlusion or significant stenosis. Left: No aneurysm, occlusion or significant stenosis. Posterior cerebral Arteries: Right: No aneurysm, occlusion or significant stenosis. Left: No aneurysm, occlusion or significant stenosis. Vertebral Arteries: Right: No aneurysm, occlusion or significant stenosis. Left: No aneurysm, occlusion or significant stenosis. Basilar Artery: No aneurysm, occlusion or significant stenosis. CTA Neck W: Visualized aorta: Unremarkable. Visualized pulmonary arteries: Unremarkable. Subclavian arteries: Unremarkable. Common Carotid: Right: No dissection, occlusion or significant stenosis. Left: Mild calcification at the common carotid bulb. No dissection, occlusion or significant stenosis. External Carotid: Right: No dissection, occlusion or significant stenosis. Left: No dissection, occlusion or significant stenosis. Internal Carotid: Right: Mild calcification at the proximal ICA. No dissection, occlusion or significant stenosis. Left: No dissection, occlusion or significant stenosis. Vertebral Artery: Right: No dissection, occlusion or significant stenosis. Left: Dominant. No dissection, occlusion or significant stenosis. Lung Apices: No acute findings. Bones: No acute abnormality. Old T3 and T4 compression fractures. Soft Tissues: Normal. IMPRESSION: 1. CTA brain: Normal CTA examination of the [place]. 2. Head CT: No acute intracranial abnormality. Bilateral nasal catheters in place. No evidence of active bleeding in the nasal cavity. Debris within the nasal cavity and posterior oropharynx pharynx. No visible mass. Opacification multiple sinuses. 3. CTA neck: No evidence of occlusion, significant stenosis or dissection. The preliminary [facility] report was reviewed. RADIATION DOSE DELIVERED: 2,158.61mGy.cm Total DLP DATA REPOSITORY: All CT scans at this facility are submitted to the National Radiology Data Registry (NRDR) Dose Index Registry (DIR) with the [employer] (ACR). RADIATION OPTIMIZATION: All CT scans at this facility use at least one of these dose optimization techniques: automated exposure control; mA and/or kV adjustment per patient size (includes targeted exams where dose is matched to clinical indication); or iterative reconstruction.
[2025-08-04 22:09] LABS: ALT 29 U/L (16-63); AST 18 U/L (15-37); Albumin 3.6 g/dL (3.4-5.0); Alkaline Phosphatase 53 U/L (46-116); Anion Gap 9.6 mmol/L (3-11); BUN 25 mg/dL (7-18); Bilirubin, Total 0.5 mg/dL (0.2-1.0); CO2 26.4 mmol/L (21.0-32.0); Calcium 8.5 mg/dL (8.5-10.1); Chloride 104 mmol/L (98-107); Estimated GFR 80.47 (mL/min/1.73m2); Glucose 107 mg/dL (74-106); Potassium 3.4 mmol/L (3.5-5.1); Sodium 140 mmol/L (136-145); Total Protein 7.1 g/dL (6.4-8.2)
--- NOTE | 2025-08-04 22:47 | DI.VRAD_ITS ---
PROCEDURE INFORMATION: Exam: CTA Head Without And With Contrast, Arteriography Exam date and time: 08/04/2025 9:46 PM Age: 70 years old Clinical indication: Other: Extreme epistaxis, blood from eyes TECHNIQUE: Imaging protocol: Computed tomographic angiography of the head without and with contrast. Exam focused on the arteries. 3D rendering (Not supervised by radiologist): MIP and/or 3D reconstructed images were created by the technologist. Radiation optimization: All CT scans at this facility use at least one of these dose optimization techniques: automated exposure control; mA and/or kV adjustment per patient size (includes targeted exams where dose is matched to clinical indication); or iterative reconstruction. Contrast material: [id number]; Contrast volume: 70 ml; Contrast route: INTRAVENOUS (IV); COMPARISON: No relevant prior studies available. FINDINGS: ANTERIOR CIRCULATION: Right internal carotid artery: Intracranial segment is patent with no significant stenosis or occlusion. No aneurysm. Right middle cerebral artery: No occlusion or significant stenosis. No aneurysm. Right anterior cerebral artery: No occlusion or significant stenosis. No aneurysm. Left internal carotid artery: Intracranial segment is patent with no significant stenosis. No aneurysm. Left middle cerebral artery: No occlusion or significant stenosis. No aneurysm. Left anterior cerebral artery: No occlusion or significant stenosis. No aneurysm. POSTERIOR CIRCULATION: Right vertebral artery: No occlusion or significant stenosis. No aneurysm. Left vertebral artery: No occlusion or significant stenosis. No aneurysm. Basilar artery: No occlusion or significant stenosis. No aneurysm. Right posterior cerebral artery: No occlusion or significant stenosis. No aneurysm. Left posterior cerebral artery: No occlusion or significant stenosis. No aneurysm. HEAD: Brain: There is mild diffuse cerebral atrophy present, consistent with this patient's age. There is patchy low attenuation in the white matter of both cerebral hemispheres which is a nonspecific finding but most likely secondary to moderate chronic microvascular ischemic disease. No evidence of acute ischemia. No hemorrhage. Cerebral ventricles: Normal. No ventriculomegaly. Bones: Unremarkable. No acute fracture. Orbital cavities: The globes are intact. The appearance of the globes is suggestive of prior cataract surgery. Paranasal sinuses: There is mucosal thickening throughout the paranasal sinuses. There is a small amount of acute blood in the left maxillary and right sphenoid sinuses. There are frothy secretions in the maxillary and sphenoid sinuses. Mastoid air cells: Visualized mastoids are normal. No mastoid effusion. Nasal cavity: There are right and left-sided nasal catheters in place. There is heterogeneous material mixed with air throughout the bilateral nasal cavities, nasopharynx, and oropharynx. There is also air within the soft tissues of the nasal cavities and nasopharynx. No discrete mass is identified. There is no contrast extravasation to suggest site of active bleeding. Soft tissues: There is mild soft tissue swelling and small amount of subcutaneous emphysema of the nose. No focal fluid collection. IMPRESSION: 1. Right and left-sided nasal catheters in place. Heterogeneous material mixed with air throughout the bilateral nasal cavities, nasopharynx, and oropharynx. There is also air within the soft tissues of the nasal cavities and nasopharynx. No discrete mass is identified. No contrast extravasation to suggest site of active bleeding. 2. Mild soft tissue swelling and small amount of subcutaneous emphysema of the nose. No focal fluid collection. 3. Mucosal thickening throughout the paranasal sinuses. Small amount of acute blood in the left maxillary and right sphenoid sinuses. PROCEDURE INFORMATION: Exam: CTA Neck With Contrast Exam date and time: 08/04/2025 9:46 PM Age: 70 years old Clinical indication: Other: Extreme epistaxis, blood from eyes TECHNIQUE: Imaging protocol: Computed tomographic angiography of the neck with contrast. Exam focused on the cervical segments of the vasculature. 3D rendering (Not supervised by radiologist): MIP and/or 3D reconstructed images were created by the technologist. Radiation optimization: All CT scans at this facility use at least one of these dose optimization techniques: automated exposure control; mA and/or kV adjustment per patient size (includes targeted exams where dose is matched to clinical indication); or iterative reconstruction. Contrast material: [id number]; Contrast volume: 70 ml; Contrast route: INTRAVENOUS (IV); COMPARISON: No relevant prior studies available. FINDINGS: Right common carotid artery: No stenosis. No dissection or occlusion. Right internal carotid artery: Mild calcified atherosclerosis of the proximal ICA. No stenosis of the extracranial segment. No dissection or occlusion. Right external carotid artery: No occlusion or stenosis of the origin. Left common carotid artery: Mild calcified atherosclerosis of the distal CCA. No stenosis. No dissection or occlusion. Left internal carotid artery: No stenosis of the extracranial segment. No dissection or occlusion. Left external carotid artery: No occlusion or stenosis of the origin. Right vertebral artery: The left vertebral artery is dominant. No stenosis. No dissection or occlusion. Left vertebral artery: No stenosis. No dissection or occlusion. Soft tissues: Normal. No significant soft tissue swelling. Bones/joints: No acute fracture. Remote appearing compression fractures with mild loss of height of T3 and moderate loss of height of T4. Multilevel chronic degenerative changes of the cervical spine. IMPRESSION: No stenosis or occlusion. REFERENCES: NASCET CRITERIA. The degree of stenosis in the cervical segment of the internal carotid artery is based on NASCET criteria. Normal is no stenosis. Mild is less than 50% stenosis. Moderate is 50-69% stenosis. Severe is 70% to 99% stenosis. Total occlusion is no detectable patent lumen. Dictated and Authenticated by: Moe Clifton MD. Orderin Ronnie Clements MD
== END 2025-08-04 23:00 | disposition home or self-care (01) ==
PROVIDERS: Emergency Provider Physician Assistant; PCP Physician Assistant Medical
DX: R04.0 Epistaxis (principal)
CPT/HCPCS: 30903; 99283 ×2; 36415; 70496; 70498; 80053; 86850; 86900; 86901; 85025; J3490

== ENCOUNTER 2025-08-08 17:07 | Emergency (ER) | payer MEDICARE, SELFPAY ==
[2025-08-08 17:08] VITALS: BP 120/66; PULSE 88; RESP 16; TEMP 36.6; O2SAT 98
[2025-08-08] MEDS: Oxymetazolone 0.05% SPRAY 15 ML BTL NS (19:38)
--- NOTE | 2025-08-09 16:21 | ED.GENADUL_ITS ---
Discharge Plan Disposition Patient Disposition: Home Condition: Stable Discharge Details Clinical Impression: Epistaxis Primary Care Provider: Robert Cooper ED Provider: Suzanna Hyatt Home Meds and New Rx's Prescriptions: Continued mv-mn [id number] 1-100-1 mg tablet 1 tab PO DAILY gemfibrozil 600 mg tablet 600 mg PO BID Qty: 180 4RF simvastatin 40 mg tablet 20 mg PO HS Qty: 45 4RF losartan 50 mg tablet 50 mg PO DAILY Clearwater 3-6-9 Triple Clearwater 1,200 MG capsule 2 cap PO DAILY aspirin [Aspirin Low-Strength] 81 mg tablet,chewable 81 mg PO 4xWeek Discharge Instructions Instructions: Nosebleeds ED Additional Instructions: hold your aspirin for the next several days coat nostrils with bacitracin 3 times daily humidifier in room at night follow-up with ENT, i have placed a referral If you have recurrence of bleeding, to place 2 sprays of Afrin and nasal clamp for 20 minutes If you continue to have bleeding he should return for reassessment Refrain from forceful blowing of your nose, placing anything up your right nostril, or frequent bending Referrals: Jose Francisco Palacios MD [ [facility] STAFF PHYSICIAN, ENT Surgical] Robert Cooper PA [Primary Care Provider, Medicine] Discharge Data Discharge Date/Time-TO BE ENTERED AT DEPARTURE: 08/08/25 19:41 HPI General Date/Time Provider Initiated Documentation: 08/08/25 17:10 . HPI Narrative: This 70-year-old male presents with recent history of epistaxis to his right naris, he had a nasal packing placed 4 days ago and is here for removal. He is not anticoagulated he states he otherwise feels well and is ready to have the packing removed. Denies any fever or chills, chest pain or shortness of breath or any additional complaints at this time. Related Data Home Medications ?Medication ?Instructions ?Recorded ?Confirmed fish oil-fat acid comb8-herb 2 cap PO DAILY 03/01/13 1 [id number] 1,200 mg (400 [id number]) cap (Clearwater 3-6-9 Triple Clearwater) aspirin 81 mg chewable tablet 81 mg PO 4xWeek 04/20/19 08/08/25 (Aspirin Low-Strength) gemfibrozil 600 mg tablet 600 mg PO BID #180 tab-caps 04/21/20 08/08/25 multivit-min 67-folic acid 1 1 tab PO DAILY 04/21/20 1 mg-alpha lipoic 100 mg-lutein 1 mg tablet simvastatin 40 mg tablet 20 mg (1/2 x 40 mg) PO HS #4 5 04/21/20 08/08/25 tab-caps losartan 50 mg tablet 50 mg PO DAILY 06/27/2307/14 Previous Rx's ?Medication ?Instructions ?Recorded gemfibrozil 600 mg tablet 600 mg PO BID #180 tab-caps 04/21/20 simvastatin 40 mg tablet 20 mg (1/2 x 40 mg) PO HS #4 5 04/21/20 tab-caps Allergies Allergy/AdvReac Type Severity Reaction Status Date / Time atorvastatin Allergy Intermediate Contraindic Verified 08/08/25 17:11 ated iodine AdvReac Intermediate Vomiting Unverified 08/08/25 17:11 shellfish derived AdvReac Intermediate Vomiting Unverified 08/08/25 17:11 General Stated Complaint: Recheck CHUY: 4 Exam Narrative Exam Narrative: Alert and oriented 70-year-old male in no acute distress, right naris with scant bleeding although no source visualized. Clot noted, uvula midline no blood noted in the posterior oropharynx speaking complete sentences no pallor no respiratory distress cardiac rate rhythm regular Course Vital Signs Vital signs: Vital Signs Temperature 36.6 C 08/08/25 17:08 Pulse 88 08/08/25 17:08 Respiratory Rate 16 08/08/25 17:08 Blood Pressure 120/66 08/08/25 17:08 Pulse Oximetry 98 08/08/25 17:08 Temperature 36.6 C 08/08/25 17:08 Pulse 88 08/08/25 17:08 Respiratory Rate 16 08/08/25 17:08 Blood Pressure 120/66 08/08/25 17:08 Pulse Oximetry 98 08/08/25 17:08 Pain Level 0 08/08/25 17:08 Medical Decision Making Procedure: Rhino Rocket was removed from right nare, anterior posterior, and anterior packing removed from left nare without incident, the air was removed from balloons prior to removing them Assessment and plan: Patient did have some scant bleeding after removal of the Rhino Rocket on the right side, I observed this for an extended period of time and there was no significant bleeding noted, there may be a clot in the posterior region. I did offer to repack however patient declines. He feels comfortable and thinks he can manage this at home. I did give him Afrin nasal clamp and encouraged him to coat his nares with bacitracin 3 times daily. Humidifier in his room was encouraged. An ENT referral was placed. Discharged home in stable condition with stable vitals [facility] All Active Problems (Updated 08/08/25 @ 19:24 by ULISSES Sanchez) Epistaxis (Acute) Hypertension (Chronic) Snoring (Acute) Fatigue (Chronic) Allergic rhinitis (Chronic) Perforation of left tympanic membrane (Acute) Deviated nasal septum (Chronic) Family history of coronary artery disease (Chronic 04/03/16) father Family history of diabetes mellitus (Chronic 04/03/16) mother History of tobacco use (Chronic) Hyperlipidemia (Chronic) Low testosterone (Chronic 03/13/15) Medical History (Updated 08/08/25 @ 19:24 by ULISSES Sanchez) COVID-19 Rash Hearing impairment Surgical History (System 12/18/21 @ 13:05 by Kristina Romo) Vasectomy Family History (System 12/18/21 @ 13:05 by Kristina Romo) Mother Diabetes Ovarian cancer Father Heart disease Sister , 61 Diabetes CD (Crohn's disease) Sister No problems noted. Sister No problems noted. Sister No problems noted. Sister No problems noted. Sister No problems noted. Brother No problems noted. Brother No problems noted. Brother No problems noted. Son Essential hypertension Daughter No problems noted. Maternal Grandfather No problems noted. Paternal Grandfather No problems noted. Maternal Grandmother No problems noted. Paternal Grandmother No problems noted. Other Family history of coronary artery disease Family history of diabetes mellitus Social History (System 12/18/21 @ 13:05 by Kristina Romo) Smoking/Tobacco Use Status: Former Tobacco Use Second Hand Exposure: Yes Smoking risk assessment performed?: Yes Alcohol Intake: current Alcohol Intake frequency: 0-2 drinks per day Alcohol type: beer and hard liquor Drug use: Never Substance use type: does not use Caregiver/Support person: No Household members: spouse Housing: house Communication Needs: None Do you need help understanding health information?: Rarely Pets and animals: Yes Pets and animals: horse(s) Sexually active: Yes Do you think of yourself as: straight/heterosexual What is your relationship status?: How often do you talk on the phone with friends or family?: three or more times per week How often do you get together with friends or relatives?: three or more times per week How often do you attend restorationist or pentecostalism services?: 1-3 times per year Do you belong to any clubs or organized social groups?: yes Panel score (0-1 are the most socially isolated patients): 3 What type of physical activity do you participate in: walking Duration: 30-45 minutes/day Frequency: daily Helen/Confucianism: Mandaen Special helen needs: No Seatbelt use: always Helmet use: Yes Helmet use: always Drive intox or ride w/intox scoop driver: No
== END 2025-08-08 19:41 | disposition home or self-care (01) ==
PROVIDERS: Emergency Provider Physician Assistant; PCP Physician Assistant Medical
DX: R04.0 Epistaxis (principal)
CPT/HCPCS: 99282; 99283

== ENCOUNTER 2025-08-22 13:53 | Outpatient (REF) | payer MEDICARE, SELFPAY ==
[2025-08-22 16:17] LABS: HCT 39.1 % (40.0-50.0); HGB 13.1 g/dL (13.5-17.5); MCH 30.5 pg (27.0-33.0); MCHC 33.5 % (32.0-36.0); MCV 91 fL (80-95); MPV 9.9 fL (8.0-11.0); Platelet Count 343 10^3/uL (130-400); RBC 4.30 10^6/uL (4.36-5.78); RDW 12.1 % (11.8-14.1); RDW-SD 40.2 fL; WBC 6.16 10^3/uL (4.4-10.8)
[2025-08-22 16:26] LABS: Cholesterol 178 mg/dL (<200); HDL Cholesterol 46 mg/dL (>or=40)
== END 2025-08-22 13:54 | disposition home or self-care (01) ==
LOC: NCHCN 13:53
PROVIDERS: PCP Physician Assistant Medical; Visit Provider Physician Assistant Medical
DX: R04.0 Epistaxis (principal); E78.2 Mixed hyperlipidemia
CPT/HCPCS: 80061; 85027